=== PATIENT | male | born 1950 | race Caucasian/White ===

== ENCOUNTER 2022-07-29 14:17 | Observation (INO) | payer BC, SELFPAY ==
[2022-07-29] VITALS (7 sets, daily range): BP systolic 95–127; BP diastolic 52–70; PULSE 58–71; RESP 16–18; TEMP 36.4–36.6; O2SAT 95–100; BMI 31.8; BMI 34.0
--- NOTE | 2022-07-29 14:19 | ECG_ITS ---
[facility] Test Date: 2022-07-29 Pat Name: Jordan Dorsey Department: Room: Gender: Male Skip Loader: : 1950 Requested By: Itz Traylor Order Number: [id number] Ulysses MD: Veda Alexis M.D. Measurements Intervals [place] Rate: 61 P: IA: QRS: -19 QRSD: 162 T: 76 QT: 476 QTc: 483 Interpretive Statements Sinus rhythm with borderline first-degree AV block LEFT BUNDLE BRANCH BLOCK [120+ ms QRS DURATION, 80+ ms Q/S IN V1/V2, 85+ ms R IN I/aVL/V5/V6] Compared to ECG 01/07/2016 20:05:19 Sinus rhythm no longer present Electronically Signed On 07-29-2022 18:24:58 CDT by Veda Alexis M.D. [id number]
--- NOTE | 2022-07-29 14:32 | W.ED.SYNCOPE ---
HPI - Syncope General: Chief Complaint: Syncope Stated Complaint: SYNCOPE Time Seen by Provider: 07/29/22 14:18 History of Present Illness: 72-year-old male presenting today with syncope. Patient notes he was in rastafari today. When he started to feel like he was going to pass out. Sat down slowly on a pew before he almost passed out. Noted to have significant diaphoresis. When asked about any kind of pain or other symptoms he does notes that he is hungry. Feels like his blood sugar is low. Blood sugar was checked on the scene was noted to be over 100. He denies fevers or chills. He denies nausea or vomiting. He denies diarrhea. Denies chest pain or shortness of breath. No prior history of similar Review of Systems General: Reports: 10 or more systems reviewed and unremarkable except in HPI and below Physical Exam Const: COMMON NORMALS: no acute distress, patient oriented x3 and alert GENERAL APPEARANCE: cooperative ORIENTATION/CONSCIOUSNESS: Yes awake, Yes oriented to person, Yes oriented to place and Yes oriented to time HENMT: COMMON NORMALS: normocephalic, atraumatic, external ears normal, Normal external nose present and moist oral mucous membranes HEAD & SCALP: normal to inspection, normocephalic and atraumatic NOSE: Normal external nose present GENERAL EAR: hearing grossly impaired EXTERNAL EAR: Yes external ears normal Eye: COMMON NORMALS: Equal, round and reactive pupils present, EOMs intact bilaterally, conjunctivae normal and no scleral icterus GENERAL EYE: appearance normal, both eyes and all related structures EYELID: eyelids normal CONJUNCTIVA: Yes conjunctivae normal SCLERA: sclerae normal PUPIL: Yes Equal, round and reactive pupils present Neck/C-Spine: COMMON NORMALS: full ROM, supple and no JVD GENERAL: Yes normal visual inspection Lymph: LYMPHATIC: no lymphadenopathy noted and no lymphedema noted Chest: COMMONS NORMALS: normal inspection of the chest Resp: COMMON NORMALS: normal respiratory effort, No retractions and No use of accessory muscles Cardio: COMMON NORMALS: no JVD, regular rate and regular rhythm RATE: regular rate RHYTHM: regular rhythm GI: COMMON NORMALS: Normal to inspection, nondistended, normoactive bowel sounds present : COMMON NORMALS: Yes no CVA tenderness BLADDER/KIDNEY EXAM: Yes no CVA tenderness Back/Pelvis: COMMON NORMALS: no CVA tenderness and thoracic and lumbar spine normal to inspection Extremity: COMMON NORMALS: normal to inspection, full ROM and capillary refill normal GENERAL: Yes normal exam except as noted Neuro: COMMON NORMALS: patient oriented x3, CN's II-XII intact bilaterally, moves all extremities, no focal motor deficits, no sensory deficits noted and gait normal SENSORIUM/ORIENTATION: Yes alert, Yes oriented to person, Yes oriented to place and Yes oriented to time Psych: COMMON NORMALS: mental status grossly normal, Normal thought process present, cooperative and normal affect THOUGHT PROCESS: Normal thought process present Skin: COMMON NORMALS: no rashes or lesions noted and no wounds GENERAL SKIN EXAM: no rashes or lesions noted Course Vital Signs: Vital signs: Vital Signs Temperature 97.6 F 07/29/22 14:21 Pulse Rate 58 L 07/29/22 15:28 Respiratory Rate 16 07/29/22 15:28 Blood Pressure 101/55 07/29/22 15:28 Pulse Oximetry 98 07/29/22 15:28 Oxygen Delivery Me thod 07/29/22 15:28 MDM - Syncope Medical Decision Making 72-year-old male presenting today with syncope. Blood sugar in the ED 62. Vitals within normal limits. Patient was given food. EKG with left bundle branch block. When compared to EKG dated 01/07/2016 the same pattern is present no significant interval changes. Significant elevation in patient's troponin to 500. Patient with suspected NSTEMI. Started on aspirin. Spoke to hospital medicine requested Lovenox be started. Also requested CTA. Both these were ordered. Patient admitted in stable condition. Lab Data : 07/29/22 14:32 07/29/22 14:32 Laboratory Results WBC 9.9 10^3/uL (4.0-10.0) 07/29/22 14:32 RBC 4.59 10^6/uL (4.1-5.3) 07/29/22 14:32 Hgb 13.9 g/dL (11.7-16.6) 07/29/22 14:32 Hct 43.1 % (42.0-52.0) 07/29/22 14:32 MCV 93.9 fl (80-94) 07/29/22 14:32 MCH 30.3 pg (28.0-34.0) 07/29/22 14:32 MCHC 32.3 g/dL (30.0-36.0) 07/29/22 14:32 RDW 14.0 % (12.1-15.1) 07/29/22 14:32 Plt Count 196 10^3/cmm (130-400) 07/29/22 14:32 MPV 11.1 fL (7.4-10.4) H 07/29/22 14:32 Neut % (Auto) 52.2 % 07/29/22 14:32 Lymph % (Auto) 25.3 % 07/29/22 14:32 [place] % (Auto) 15.7 % 07/29/22 14:32 Eos % (Auto) 5.8 % 07/29/22 14:32 Baso % (Auto) 0.7 % 07/29/22 14:32 Neut # (Auto) 5.16 10^3/uL (1.8-7.7) 07/29/22 14:32 Lymph # (Auto) 2.5 10^3/uL (0.8-4.8) 07/29/22 14:32 [place] # (Auto) 1.6 10^3/uL (0.2-0.9) H 07/29/22 14:32 Eos # (Auto) 0.6 10^3/uL (0.0-0.8) 07/29/22 14:32 Baso # (Auto) 0.1 10^3/uL (0.0-0.1) 07/29/22 14:32 Nucleated RBC % (auto) 0 % 07/29/22 14:32 Nucleated RBCs # 0.0 /100WBC 07/29/22 14:32 Sodium 136 mmol/L (136-145) 07/29/22 14:32 Potassium 3.9 mmol/L (3.5-5.1) 07/29/22 14:32 Chloride 99 mmol/L (98-107) 07/29/22 14:32 Carbon Dioxide 25 mmol/L (22-29) 07/29/22 14:32 Anion Gap 15.9 (5-19) 07/29/22 14:32 BUN 38 mg/dL (8-23) H 07/29/22 14:32 Creatinine 1.1 mg/dL (0.7-1.2) 07/29/22 14:32 GFR Calculation Not Reportable 07/29/22 14:32 Glucose 62 mg/dL (65-115) L 07/29/22 14:32 POC Glucose 62 mg/dL (70-110) L 07/29/22 14:31 Calculated Osmolality 289 mOsm/kg (285-295) 07/29/22 14:32 Calcium 9.3 mg/dL (8.5-10.5) 07/29/22 14:32 Total Bilirubin 0.4 mg/dL (0.15-1.2) 07/29/22 14:32 AST 31 U/L (0-40) 07/29/22 14:32 ALT 25 U/L (0-41) 07/29/22 14:32 Alkaline Phosphatase 60 U/L (40-130) 07/29/22 14:32 Troponin T Baseline 504 ng/L (0-15) H* 07/29/22 14:32 Total Protein 6.6 g/dL (6.6-8.7) 07/29/22 14:32 Albumin 4.1 g/dL (3.5-5.2) 07/29/22 14:32 Globulin 2.5 g/dL (1.3-4.6) 07/29/22 14:32 Discharge Plan Discharge Patient Disposition: Admitted As Inpatient Clinical Impression: Non-ST elevation NV (NSTEMI) Condition: Stable Prescriptions: No Action citalopram 20 mg tablet 20 mg PO QDAY Qty: 30 1RF Referrals: Valorie Wells APN [Primary Care Provider] - Coding Level of Care Code ED Scrap Handler for She Fwd Exam Comprehensive
[2022-07-29 14:39] LABS: Glucose Point of Care 62 mg/dL (70-110)
[2022-07-29 15:03] LABS: Basophils # 0.1 10^3/uL (0.0-0.1); Basophils % 0.7 %; Eosinophils # 0.6 10^3/uL (0.0-0.8); Eosinophils % 5.8 %; Hematocrit 43.1 % (42.0-52.0); Hemoglobin 13.9 g/dL (11.7-16.6); Lymphocytes # 2.5 10^3/uL (0.8-4.8); Lymphocytes % 25.3 %; Mean Corpuscular HGB Conc 32.3 g/dL (30.0-36.0); Mean Corpuscular Hemoglobin 30.3 pg (28.0-34.0); Mean Corpuscular Volume 93.9 fl (80-94); Mean Platelet Volume 11.1 fL (7.4-10.4); Monocytes # 1.6 10^3/uL (0.2-0.9); Monocytes % 15.7 %; Neutrophils # 5.16 10^3/uL (1.8-7.7); Neutrophils % 52.2 %; Nucleated Red Blood Cells % 0 %; Platelet Count 196 10^3/cmm (130-400); Red Blood Count 4.59 10^6/uL (4.1-5.3); White Blood Count 9.9 10^3/uL (4.0-10.0)
[2022-07-29 15:22] LABS: Troponin(5th) Baseline 504 ng/L (0-15)
[2022-07-29 15:23] LABS: Alanine Aminotransferase 25 U/L (0-41); Albumin Level 4.1 g/dL (3.5-5.2); Alkaline Phosphatase 60 U/L (40-130); Anion Gap 15.9 (5-19); Aspartate Amino Transferase 31 U/L (0-40); Blood Urea Nitrogen 38 mg/dL (8-23); Calcium 9.3 mg/dL (8.5-10.5); Carbon Dioxide 25 mmol/L (22-29); Chloride 99 mmol/L (98-107); Globulin 2.5 g/dL (1.3-4.6); Glucose 62 mg/dL (65-115); Osmolality Calculated 289 mOsm/kg (285-295); Potassium 3.9 mmol/L (3.5-5.1); Sodium 136 mmol/L (136-145); Total Bilirubin 0.4 mg/dL (0.15-1.2); Total Protein 6.6 g/dL (6.6-8.7)
--- NOTE | 2022-07-29 15:29 | CTR_ITS ---
PROCEDURE INFORMATION: Exam: CTA Chest With Contrast Exam date and time: 07/29/2022 4:33 PM Age: 72 years old Clinical indication: Shortness of breath; Additional info: SOB TECHNIQUE: Imaging protocol: Computed tomographic angiography of the chest with contrast. 3D rendering (Not supervised by radiologist): MIP and/or 3D reconstructed images were created by the technologist. Radiation optimization: All CT scans at this facility use at least one of these dose optimization techniques: automated exposure control; mA and/or kV adjustment per patient size (includes targeted exams where dose is matched to clinical indication); or iterative reconstruction. Contrast material: OMNI 350; Contrast volume: 100 ml; Contrast route: INTRAVENOUS (IV); COMPARISON: CT chest w con* [id number] 01/07/2016 9:07 PM RADIATION DOSE METRICS: Total DLP (mGy-cm): 501.38 FINDINGS: Pulmonary arteries: Normal. No pulmonary emboli. Aorta: Unremarkable. No aortic aneurysm. No aortic dissection. Lungs: Bilateral dependent atelectasis versus minimal infiltrate. Pleural spaces: Unremarkable. No pneumothorax. No pleural effusion. Heart: Coronary artery atherosclerotic calcifications. Lymph nodes: Unremarkable. No enlarged lymph nodes. Bones/joints: Chronic right posterior rib fractures appear healed. Soft tissues: Unremarkable. CT/CT angio chest PE protcl [id number] IMPRESSION: 1. Negative for pulmonary embolus. 2. Coronary artery atherosclerotic calcifications. 3. Bilateral dependent atelectasis versus minimal infiltrate. 4. Chronic right posterior rib fractures appear healed.
[2022-07-29 15:35] LABS: Glucose Point of Care 96 mg/dL (70-110)
[2022-07-29] MEDS: enoxaparin 100 mg/mL Syringe SUBCUT (15:38)
--- NOTE | 2022-07-29 16:19 | ECG_ITS ---
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 Measurements Intervals [place] Rate: 58 P: 61 [place]: 210 QRS: -16 QRSD: 162 T: 64 QT: 476 QTc: 472 Interpretive Statements SINUS BRADYCARDIA WITH FIRST DEGREE AV BLOCK LEFT BUNDLE BRANCH BLOCK [120+ ms QRS DURATION, 80+ ms Q/S IN V1/V2, 85+ ms R IN I/aVL/V5/V6] Compared to ECG 07/29/2022 14:30:12 First degree AV block now present Electronically Signed On 07-30-2022 21:29:21 CDT by Veda Alexis M.D. [email or web address].[employer]/store/[id number]
[2022-07-29] MEDS: iohexol 350 mg/mL 100 mL Btl IV (16:38)
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
--- NOTE | 2022-07-29 18:22 | ECG_ITS ---
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 Interpretive Statements NAME OF STUDY: LEXISCAN SESTAMIBI STRESS TEST INDICATION: Ua, PROCEDURE: At the baseline, the EKG revealed normal sinus rhythm with a left bundle branch block. The baseline heart was 67 bpm with a blood pressue of 131/64 mm of Hg Lexiscan was infused over a period of 20 seconds. A total of 0.4 milligrams of Lexiscan was infused. The stress phase was continued for a total of 5 minutes. Heart rate at the end of the stress phase was 75 bpm with a blood pressure 133/73 mm of Hg. The EKG at the peak infusion revealed no significant changes. Sestamibi was injected 20 seconds after the Lexiscan infusion. Heart rate at the end of the recovery phase was 73 bpm with a blood pressure of 135/75 mm of Hg. CONCLUSION: 1. No significant EKG changes with the LexiScan infusion 2. No LexiScan induced chest pain or cardiac arrhythmia 3. Normal blood pressure and heart rate response 4. Sestamibi/sestamibi perfusion scan pending; see separate report. Electronically Signed On 08-03-2022 16:11:44 CDT by Veda Alexis M.D. [id number]
--- NOTE | 2022-07-29 18:22 | USCV_ITS ---
Jordan Dorsey Age: 72 Gender: M : 1950 Exam Date: 07/29/2022 20:32 Ordering Phys: Claude Mo MD Technologist: Felecia Witt Exam Location[place] [facility] [place]ication: NSTEMI BP: 110 / 65 HR: 63 Rhythm: Sinus Technical Quality: Adequate MEASUREMENTS (Male / Female) Normal Values 2D ECHO LV Diastolic Diameter PLAX 4.0 cm 4.2 - 5.9 / 3.9 - 5.3 cm LV Systolic Diameter PLAX 2.3 cm LV Chamber Size 2.9 cm IVS Diastolic Thickness 1.3 cm 0.6 - 1.0 / 0.6 - 0.9 cm IVS Systolic Thickness 1.7 cm LVPW Diastolic Thickness 1.2 cm 0.6 - 1.0 / 0.6 - 0.9 cm LVPW Systolic Thickness 1.6 cm RV Chamber Size 2.4 cm LVOT Diameter 2.0 cm LV Ejection Fraction 2D Teich 74.4 % LV Ejection Fraction MOD 2C 62.4 % LV Ejection Fraction 2C AL 63.2 % LA Diameter 3.4 cm LA Width 3.6 cm LA Height 4.2 cm RA Width 3.8 cm RA Height 4.3 cm Aorta at Sinotubular Diameter 2.9 cm IVC Diameter 2.3 cm M-MODE Aortic Annulus Diameter 3.5 cm LA Ao Ratio MM 1.1 MV E Point Septal Separation 0.6 cm DOPPLER AV Peak Velocity 133.0 cm/s LVOT Peak Velocity 114.0 cm/s AV Area Cont Eq vti 3.2 cm squared AV Area Cont Eq pk 2.7 cm squared MV Area PHT 5.1 cm squared Mitral E to A Ratio 1.2 MV E' Velocity 126.0 cm/s TR Peak Velocity 247.9 cm/s TR Peak Gradient 24.6 mmHg TR Mean Velocity 209.7 cm/s TR Mean Gradient 18.6 mmHg TR Velocity Time Integral 90.9 cm TV Peak E Velocity 77.0 cm/s Right Atrial Pressure 3.0 mmHg Pulmonary Artery Systolic Pressu 27.6 mmHg PV Peak Velocity 0.0 cm/s RV Acceleration Time 0.1 s RV Ejection Time 0.4 s RV AcT/ET 0.3 FINDINGS Left Ventricle LV ejection fraction around 50%. Abnormal septal motion consistent with conduction abnormality. Right Ventricle The right ventricle is normal in size and function. Right Atrium The right atrium is normal in size. Left Atrium Mildly increased left atrial size. Mitral Valve Thickened mitral valve. Moderate mitral valve regurgitation. Aortic Valve Thickened aortic valve. Tricuspid Valve Trace to mild tricuspid valve regurgitation. Estimated pulmonary artery peak systolic pressure of 28 mmHg Pulmonic Valve Pulmonic valve not well visualized. Pericardium No pleural effusion. Aorta Normal aortic annulus size. IVC The inferior vena cava appears normal. CONCLUSIONS Normal LV size with a slightly diminished ejection fraction of 50%.(Visual) Abnormal septal motion consistent with conduction abnormality. Mildly increased left atrial size. Thickened mitral valve. Moderate mitral valve regurgitation. Thickened aortic valve. Trace to mild tricuspid valve regurgitation. Estimated pulmonary artery peak systolic pressure of 28 mmHg. There is no pericardial effusion. There are no intracardiac masses. No similar previous studies are available for comparison Dr Veda Alexis MD [facility] (Electronically Signed) Final Date: 30 July 2022 09:32 S
[2022-07-29 18:42] LABS: Procalcitonin 0.06 ng/mL (0-0.5)
[2022-07-29] MEDS: lactated ringers 500 ML 999 ML IV (19:45)
[2022-07-29] MEDS: sodium chloride 0.9% 1,000 ML 75 ML IV (19:49)
[2022-07-29 19:58] LABS: Estmated Average Glucose 186; Hemoglobin A1C 8.1 % (4.0-6.0)
--- NOTE | 2022-07-29 20:11 | ECG_ITS ---
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 Measurements Intervals [place] Rate: 66 P: 47 AZ: 176 QRS: -5 QRSD: 162 T: 114 QT: 435 QTc: 458 Interpretive Statements SINUS RHYTHM LEFT BUNDLE BRANCH BLOCK [120+ ms QRS DURATION, 80+ ms Q/S IN V1/V2, 85+ ms R IN I/aVL/V5/V6] Compared to ECG 07/29/2022 16:13:31 Sinus bradycardia no longer present First degree AV block no longer present Electronically Signed On 07-30-2022 21:29:59 CDT by Veda Alexis M.D. [email or web address] [email or web address] memorial hospitalStopTheHackermercy [facility].[employer]/store/OM/[id number]
[2022-07-29 20:25] LABS: Troponin 5 6HR 380.6 ng/L (0-15)
[2022-07-29 20:47] LABS: NT Pro B Type Natriuretic Pept 491 pg/mL (0-125); Thyroid Stimulating Hormone 0.91 uIU/mL (0.27-4.20)
[2022-07-29 21:19] LABS: Add Urine Microscopic? NO; Charge for UA Resulting for Rev
[2022-07-29 21:20] LABS: Glucose Point of Care 159 mg/dL (70-110)
[2022-07-29 21:24] LABS: Bilirubin Urine Neg (Negative); Blood Urine Neg (Negative); Glucose Urine UA 1+ (Normal); Ketones Urine Negative (Negative); Leukocyte Esterase Urine Negative (Negative); Nitrate Urine Negative (Negative); Protein Urine Neg (Negative); Specific Gravity, Urine 1.015 (1.005-1.030); Urine Appearance Clear (CLEAR); Urine Color Yellow (Yellow); Urobilinogen Urine Neg (Negative); pH Urine 5 (5-7)
[2022-07-29] MEDS: enoxaparin 120 mg/0.8 mL Syringe 110 MG SUBCUT (22:36)
[2022-07-30] VITALS (11 sets, daily range): BP systolic 106–148; BP diastolic 61–84; PULSE 68–90; RESP 16–22; TEMP 36.3–36.8; O2SAT 94–98
[2022-07-30 00:42] LABS: Vitamin B12 637 pg/mL (232-1245)
[2022-07-30 04:51] LABS: Basophils # 0.1 10^3/uL (0.0-0.1); Eosinophils # 0.4 10^3/uL (0.0-0.8); Eosinophils % 7.3 %; Hematocrit 44.5 % (42.0-52.0); Hemoglobin 13.8 g/dL (11.7-16.6); Lymphocytes # 1.1 10^3/uL (0.8-4.8); Lymphocytes % 18.9 %; Mean Corpuscular Volume 96.7 fl (80-94); Mean Platelet Volume 10.9 fL (7.4-10.4); Monocytes # 0.9 10^3/uL (0.2-0.9); Monocytes % 14.4 %; Neutrophils % 58.1 %; Nucleated Red Blood Cells % 0 %; Platelet Count 161 10^3/cmm (130-400); Red Cell Distribution Width 14.2 % (12.1-15.1)
[2022-07-30 05:13] LABS: Blood Urea Nitrogen 28 mg/dL (8-23); Calcium 9.2 mg/dL (8.5-10.5); Carbon Dioxide 28 mmol/L (22-29); Chloride 99 mmol/L (98-107); Glucose 128 mg/dL (65-115); Osmolality Calculated 289 mOsm/kg (285-295); Sodium 136 mmol/L (136-145)
[2022-07-30 05:22] LABS: Anion Gap 13.4 (5-19); Potassium 4.4 mmol/L (3.5-5.1)
[2022-07-30] MEDS: acetaminophen 500 mg Tablet PO ×2 (05:24→23:23)
[2022-07-30 06:47] LABS: Glucose Point of Care 111 mg/dL (70-110)
[2022-07-30] MEDS: regadenoson 0.4 Mg/5 ml Syringe IVP (07:39)
[2022-07-30] MEDS: sennosides-docusate Tablet 1 TAB PO (08:48)
[2022-07-30] MEDS: aspirin 81 mg Chew Tablet PO (08:48)
[2022-07-30] MEDS: atorvastatin 40 mg Tablet 80 MG PO (08:48)
[2022-07-30] MEDS: clopidogrel 75 mg Tablet PO (08:48)
--- NOTE | 2022-07-30 11:03 | P.PN_ITS ---
Subjective Subjective: Positive stress test We will call Dr. Coombs Plan for angiogram tomorrow We will keep him n.p.o. after midnight Chest pain-free Hemodynamically stable Vitals/I&O/Wt Last Vital Signs Temp 97.3 F L 07/30/22 07:00 Pulse 70 07/30/22 08:00 Resp 16 07/30/22 08:00 BP 135/75 07/30/22 07:38 Pulse Ox 98 07/30/22 08:00 O2 Del Method 07/30/22 08:00 07/29/22 07/30/22 07/30/22 22:59 06:59 14:59 Intake Total 500 / 500 500 / 500 Balance 500 / 500 500 / 500 Weight last 48 hrs Weight 110.495 kg Weight 106.594 kg Physical Exam Narrative: Chest pain-free Came out of bathroom No active shortness of breath Looks euvolemic Abdomen soft Pleasant cooperative Currently on room air Hemodynamically stable Data : 07/30/22 04:39 07/30/22 04:39 A&P Assessment and plan (1) Non-ST elevation SC (NSTEMI): Plan Positive stress test NSTEMI Continue ACS protocol Chest pain-free Plan for angiogram tomorrow N.p.o. after midnight Continue therapeutic Lovenox Full code Continue cardiac consistent carb diet until midnight Normotensive Afebrile Attestations Medical Necessity Statement*: Angiogram tomorrow Time Spent in Patient Care: 35 Coding Level of Care Code Acute Fructose Loader for She [place] Diagnoses Non-ST elevation SC (NSTEMI) I21.4
[2022-07-30 11:55] LABS: Glucose Point of Care 116 mg/dL (70-110)
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
[2022-07-30 16:51] LABS: Glucose Point of Care 132 mg/dL (70-110)
--- NOTE | 2022-07-30 18:22 | NMCV_ITS ---
NM joes perf SPECT r/s* [id number] Jordan Dorsey Age: 72 Gender: M : 1950 Exam Date: 07/30/2022 06:47 Ordering Phys: Claude Mo MD Technologist: IRAM Howe Exam Location: [facility] Indications: CP STRESS TEST Please see separate stress test report in [facility] for full findings IMAGE PROTOCOL Rest/Stress 1 Lexiscan Day Radiopharmaceutical Dose (mCi) Administration Site Administered by Rest: Tc-99m 10.7 IV IRAM Howe Sestamibi Stress:Tc-99m 32.5 IV IARM Howe Sestamibi Rest: 30-Jul-2022 60 Discovery 630 Stress: 30-Jul-2022 30 Discovery 630 0.4mg Lexiscan. Images obtained in supine and prone position. SPECT RESULTS Technical Quality: Good Raw Data Analysis: Normal Image Corrections: No attenuation or motion correction applied Summed Stress Score: 8 Summed Rest Score: 7 Summed Difference Score: 4 PERFUSION FINDINGS Moderate area of moderately severe decreased tracer uptake in the basal, mid and apical inferior and basal inferolateral regions. Some reversibility was noted in the inferior wall region FUNCTIONAL RESULTS (calculated via Gated SPECT) Stress Image LV EF (%): 63 Stress EDV (mL):132 TID: 1.09 Stress ESV (mL):49 FUNCTIONAL FINDINGS: Segmental wall motion analysis revealing no gross wall motion normalities. IMPRESSIONS 1. Myocardial perfusion imaging revealing moderate area of moderately severe decreased tracer uptake in the inferior wall region and apex with some reversibility suggesting myocardial scarring that she was on the right coronary artery with significant farhan-infarction ischemia 2. Normal LV ejection fraction of 63%. 3. LV wall motion analysis revealing no gross wall motion abnormalities. 4. Normal LV volume No similar previous studies are available for comparison Dr Veda Alexis MD FAC (Electronically Signed) Final Date: 30 July 2022 09:36 S
--- NOTE | 2022-07-30 19:59 | PC.NURSE ---
Called and spoke with regarding patients request to be moved into another room as his roomateis confused and disruptive. The patient is scheduled fora cath tomorrow. said patient can be movedtomedsurg with tele.
--- NOTE | 2022-07-30 20:39 | PC.NURSE ---
Shift Note Frequent safety and comfort rounds continue. Pt denies any chest pain or discomfort. 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 Educated pt on left heart cath procedure and prep. Pt verbalizes understanding
[2022-07-31] VITALS (20 sets, daily range): BP systolic 105–155; BP diastolic 63–132; PULSE 83–133; RESP 12–27; TEMP 36.4–36.5; O2SAT 93–98
[2022-07-31] MEDS: enoxaparin 120 mg/0.8 mL Syringe 110 MG SUBCUT (00:12)
[2022-07-31] MEDS: sodium chloride 0.9% 1,000 ML 50 ML IV (00:13)
[2022-07-31 03:00] LABS: Basophils # 0.1 10^3/uL (0.0-0.1); Basophils % 1.2 %; Eosinophils # 0.4 10^3/uL (0.0-0.8); Eosinophils % 8.3 %; Hematocrit 41.5 % (42.0-52.0); Hemoglobin 13.1 g/dL (11.7-16.6); Lymphocytes # 1.1 10^3/uL (0.8-4.8); Lymphocytes % 21.7 %; Mean Corpuscular HGB Conc 31.6 g/dL (30.0-36.0); Mean Corpuscular Hemoglobin 30.1 pg (28.0-34.0); Mean Corpuscular Volume 95.4 fl (80-94); Monocytes # 0.8 10^3/uL (0.2-0.9); Monocytes % 16.4 %; Neutrophils # 2.59 10^3/uL (1.8-7.7); Neutrophils % 52.4 %; Nucleated Red Blood Cells % 0 %; Platelet Count 160 10^3/cmm (130-400); Red Blood Count 4.35 10^6/uL (4.1-5.3); Red Cell Distribution Width 14.2 % (12.1-15.1); White Blood Count 4.9 10^3/uL (4.0-10.0)
[2022-07-31 03:22] LABS: Anion Gap 13.1 (5-19); Blood Urea Nitrogen 21 mg/dL (8-23); Calcium 9.4 mg/dL (8.5-10.5); Carbon Dioxide 26 mmol/L (22-29); Chloride 98 mmol/L (98-107); Glucose 139 mg/dL (65-115); Osmolality Calculated 281 mOsm/kg (285-295); Potassium 4.1 mmol/L (3.5-5.1); Sodium 133 mmol/L (136-145)
[2022-07-31] MEDS: diphenhydrAMINE 50 mg Capsule PO (06:32)
[2022-07-31 06:51] LABS: Glucose Point of Care 104 mg/dL (70-110)
--- NOTE | 2022-07-31 07:30 | XACV_ITS ---
Exam Room: [facility] Ht: 180 cm Wt: 110 kg BSA: 2.39 m2 Gender: Male : 1950 Any Known Allergies: Sulfa Exam Priority: Routine Procedure(s): Procedure Description: Diagnostic procedure Procedure Description: Coronary Angiography Diagnostic Cath Status: Elective Diagnostic Findings * INDICATION: 72 year old man with PMH of carotid artery disease, hypertension, diabetes, hyperlipidemia who presented with presyncope, troponin elevation, diaphoresis and left bundle branch block. Patient had significant bilateral arm pain about 1 week back. No chest pain now. Stress test shows a prior infarct with farhan-infarct ischemia in RCA territory. Given significant troponin elevation that has trended down on repeat check, we will proceed with coronary angiogram with possible percutaneous coronary intervention. * Circumflex has moderate diffuse disease. * Left Main: luminal irregularities, has 20% ostial stenosis, DMITRIY: 3 flow. * RCA appears to be small in size. Mid Right Coronary Artery: total occlusion, DMITRIY: 0 flow. Has collateral blood supply to distal RCA. * LAD has moderate diffuse disease. Mid Left Anterior Descending: moderate 50% stenosis, DMITRIY: 3 flow. * Coronary angiography shows right dominance. PCI Status: Urgent PCI Indication: NSTE - ACS Interventional Findings * PROCEDURE DETAIL: We engaged RCA with JR4 guide catheter. IV heparin was administered to maintain ACT above 250 Seconds. Brief attempt at avoiding totally occluded RCA was performed. However wire could not be advanced. As patient is chest pain-free and troponins are downtrending, occlusion appears to be old. We decided to medically treated it. We then engaged left main artery with XB 3.0 guide catheter. We tried to wire the LAD with IFR wire after normalization to assess mid LAD moderate stenosis. However because of tortuosity, IFR wire had difficulty to advance. As stress test had not shown ischemia in LAD territory, we decided to treated medically.. Conclusions 1. 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 Unsuccessful revascularization attempt. Patient likely had acute occlusion 1 week back when had significant bilateral arm discomfort but no medical assistance was seeked. Patient now has collateral blood supply and mostly fixed perfusion defect in RCA territory. Medical therapy decided. Recommendations * Aspirin and Plavix for atleast 1 year. * High intensity statin therapy. * Outpatient cardiology follow up in 4 weeks. Interventional RX Recommendation: medical therapy and/or counseling Diagnostic RX Recommendation: PCI w/o planned CABG Anticoagulation: Heparin Pressures Phase:Rest AO : 108 / 71 ( 88 ) @ 8:54:00 AM 103 / 60 ( 77 ) @ 9:00:00 AM 102 / 58 ( 76 ) @ 9:16:00 AM 103 / 50 ( 71 ) @ 9:26:00 AM Clinical Evaluation EBL: 5mL-10mL Procedural Details Procedure Consent Obtained. Pre-Procedure Time Out. Identified patient by full name and date of as verbalized by the patient/guarantor. Does the consent match the physician's order: Yes. Accurate & Complete Informed Consent: Yes. Inpatient/Outpatient History & Physical on Chart: Yes. If H&P is completed, is and addenduem needed: No. Visualize and Verify Site with Patient/Guarantor: N/A. Relevant Radiology Images available: Yes. The risks, benefits, and alternatives of sedation and/or procedure were discussed by physician. The patient agrees to continue. Procedure started. [facility] Clinical Fraility Score: 3: Managing Well. 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 Chest Pain Symptom Assessment: Typical Angina Symptoms. Cardiovascular Instability: No. Correct patient, site and procedure confirmed by cath team. Current diagnosis: NSTEMI. PERRLA. Strong, equal hand health and safety specialist bilaterally. Lungs clear x 5 lobes. IV Site on Arrival: 18 gauge in the left anticubital. IV Site on Arrival: 22 gauge in the left hand. IV Fluids: 0.9% NaCl at KVO. 200 mL infused prior to laboratory sampler. Pre Procedural Pulses: bilateral radial was 1+. Oxygen started at 2 liters/min via nasal canula. right groin was prepped with chloroprep then draped in the usual sterile fashion. right radial was prepped with chloroprep then draped in the usual sterile fashion. Physician notified. Baseline sample Acquired. HR: 95 BPM. Equipment: 6F - Radial. Cardiac Cath Pack. ACIST Manifold Kit Model BT 2000. Heparinized Saline (2 units/mL), 1000 mL bag. Patient's family unavailable. Patient stated that he would call his spouse when he returned to his room after the procedure. Physician arrived. Physician scrubbed in. Immediate Pre-Procedure Time Out. Correct Patient: Yes; Correct Procedure: Yes; Correct Site: Yes; Correct Patient Position: Yes; Correct Supplies: Yes; Dried Flammable Prep: Yes; Blood Products Available: N/A;. Lidocaine 1% infiltrated to the right radial. Arterial access obtained. A 5 algerian TIG catheter in over the exchange wire. Catheter removed over the exchange wire. A 5 algerian JL4 catheter in over the exchange wire. Multiple views taken of left coronary artery. Catheter removed over the exchange wire. A 5 algerian JR4 catheter in over the exchange wire. Multiple views taken of right coronary artery. Catheter removed over the exchange wire. 6 algerian JR 4 guide catheter was inserted over the exchange wire. Runthrough guidewire was advanced through the guide catheter but unable to crosss the lesion in the mid RCA. Guide catheter out over the exchange wire. 6 algerian XB 3 guide catheter was inserted over the exchange wire. OmniWire iFR guidewire was advanced through the guide catheter to lesion in the mid LAD. Runthrough guidewire was advanced through the guide catheter to lesion in the mid LAD. Unable to cross lesion, iFR and Runthrough guidewires removed. Cine of the LCA performed. Guide catheter out over the exchange wire. A TR Band was successful obtaining hemostatsis at the Right Radial artery insertion site. Dr. Coombs scrubbed out. TR band placed. Hemostasis obtained. Post Procedure: Pulses reassessed and unchanged. PERRLA. Strong, equal hand health and safety specialist bilaterally. No VTE prophylaxis required. Medication's Wasted: Lidocaine 1% = 1 mL. Medication's Wasted: Nitro = 49.2 mg. Medication's Wasted: Heparin = 1000 units. Total IV fluids: 70 mL. Post-op diagnosis: Total occlusion of the RCA. Moderate mid LAD stenosis. Complications: none. Estimated blood loss: 5mL-10mL. Responsiveness - Normal response to verbal stimuli; alert and oriented, PERRLA. Airway - Unaffected, no intervention required; spontaneous ventilation. Circulation: W/N/L, pulses unchanged. Nausea/Vomiting: No. Procedure completed. Patient transferred by wheelchair to [facility]. Vital chart was stopped. Access Site Site: Right Radial artery Sheath Size: 6 Fr Hemostasis Method: TR Band Hemostasis Success: Successful Procedure Medications Start: 7:51 AM Stop: 7:51 AM Medication: Versed Amount: 1 mg Route: I.V. Start: 7:51 AM Stop: 7:51 AM Medication: Fentanyl Amount: 50 mcg Route: I.V. Start: 7:53 AM Stop: 7:53 AM Medication: Nitrogylcerin Amount: 200 mcg Route: I.A. Start: 7:54 AM Stop: 7:54 AM Medication: Heparin Amount: 5000 units Route: I.V. Start: 8:02 AM Stop: 8:02 AM Medication: Fentanyl Amount: 25 mcg Route: I.V. Start: 8:03 AM Stop: 8:03 AM Medication: Nitrogylcerin Amount: 200 mcg Route: I.A. Start: 8:04 AM Stop: 8:04 AM Medication: Versed Amount: 1 mg Route: I.V. Start: 8:13 AM Stop: 8:13 AM Medication: Nitrogylcerin Amount: 200 mcg Route: I.A. Start: 8:13 AM Stop: 8:13 AM Medication: Heparin Amount: 3000 units Route: I.V. Start: 8:22 AM Stop: 8:22 AM Medication: Heparin Amount: 2000 units Route: I.V. Start: 8:22 AM Stop: 8:22 AM Medication: Nitrogylcerin Amount: 200 mcg Route: I.A. Start: 8:36 AM Stop: 8:36 AM Medication: Versed Amount: 1 mg Route: I.V. I, the attending physician, have reviewed and verified all procedure medications. Yes, all medications given per verbal order History/Risk Factors Hypertension: Yes Dyslipidemia: No Peripheral Arterial Disease (PAD): No Myocardial Infarction (WI): No Obesity: Yes Renal Disease: No Tobacco Use: Former Prior Interventions PCI: No CABG: No Valve Surgery: No Report Signatures Finalized by Igor Coombs MD on 08/01/2022 09:29 AM
--- NOTE | 2022-07-31 07:45 | W.PM.OPSUD ---
Surgery/Procedure H&P Update DATE OF PROCEDURE: July 31, 2022 DATE H&P PERFORMED: 07/30/22 H&P UPDATE INFORMATION: I have reviewed H&P completed within last 30 days, I have examined patient prior to procedure and No changes to prior documentation PREOP DIAGNOSIS: NSTEMI PRIMARY INDICATION FOR PROCEDURE: NSTEMI PLANNED PROCEDURE: Left heart cath with possible percutaneous coronary intervention PATIENT REASSESSED PRIOR TO SEDATION, WITH NO CHANGE NOTED: Yes PHYSICAL EXAM: alert, oriented x 3, clear to auscultation bilaterally and regular rate & rhythm AIRWAY EVAL/ANESTHESIA PLAN: ASA III, Local Anesthesia, Risks, benefits & alternatives of sedation and/or procedure discussed and Patient agrees to continue as planned ADDITIONAL INFORMATION: Possible percutaneous coronary intervention
--- NOTE | 2022-07-31 09:05 | PC.NURSE ---
received pt from [facility]. pt complains of no pain, alert and oriented x3. tr band on right wrist with palpable distal pulse. no hematoma or bruising noted. pt educated on restrictions of wrist and acknowledged understanding. floor to call when bed is ready. will continue to educate throughout recovery. pt on monitor and will be recovered per protocol.
--- NOTE | 2022-07-31 09:08 | P.PN_ITS ---
Subjective Subjective: Patient found to have totally occluded RCA with collateral blood supply. Brief attempt at crossing the stenosis performed but wiring could not be done. Moderate mid LAD stenosis. iFR attempted but because of tortuous vessel could not be performed Vitals/I&O/Wt Last Vital Signs Temp 97.7 F 07/31/22 04:00 Pulse 94 07/31/22 09:00 Resp 18 07/31/22 09:00 BP 117/76 07/31/22 09:00 Pulse Ox 97 07/31/22 09:00 O2 Del Method 07/31/22 09:00 07/30/22 07/31/22 07/31/22 22:59 06:59 14:59 Intake Total 240 / 1580 Balance 240 / 1580 Weight last 48 hrs Weight 243 lb 9.6 oz Weight 235 lb Physical Exam Narrative: GENERAL: Patient is alert, awake and oriented x3. [] NECK: No jugular vein distension. [] HEENT: No cyanosis. No icterus. No pallor. [] HEART: Regular S1 and S2. No murmur, rub or gallop. [] LUNGS: Clear to auscultate bilaterally. [] ABDOMEN: Soft CENTRAL NERVOUS SYSTEM: Grossly nonfocal. [] EXTREMITIES: Lower extremities with no edema bilaterally. Pulses palpable in the lower extremities, both dorsalis pedis and posterior tibial. [] Data : 07/31/22 02:50 07/31/22 02:50 A&P Assessment and plan (1) Non-ST elevation IA (NSTEMI): (2) HTN (hypertension): (3) Pre-syncope: Plan Patient has been found to have totally occluded RCA with collateral blood flow. Likely patient had acute IA last week when he had significant symptoms. Stress test showing mainly scar tissue with farhan-infarct ischemia. Brief attempt at revascularization of RCA was unsuccessful. Aggressive medical therapy Continue aspirin and Plavix High intensity statin therapy Echocardiogram shows EF of 50%. Patient will need outpatient 30 day event monitor at time of discharge Thank you for involving us with care of this patient. Patient is stable to be discharged from cardiology standpoint. Please call with questions. Attestations Medical Necessity Statement*: Care expected to cross 2 midnights. Coding Level of Care Code Acute Can Sterilizer for She [place] Diagnoses Non-ST elevation IA (NSTEMI) I21.4 HTN (hypertension) I10 Pre-syncope R55
--- NOTE | 2022-07-31 10:28 | P.DS_ITS ---
Discharge Providers Date of Admission: 07/29/22 15:34 Date of Discharge: July 31, 2022 Attending Provider at Admission: Claude Mo MD Attending Provider at Discharge: Claude Mo MD Primary Care Provider: Valorie Wells APN Diagnoses at Discharge Discharge Diagnosis (1) Non-ST elevation ME (NSTEMI): Status: Acute (2) HTN (hypertension): Status: Acute (3) Pre-syncope: Status: Acute Reason for Visit Reason for Visit: SYNCOPE Hospital Course Hospital Course 72-year male who was admitted for management evaluation of NSTEMI, positive stress test, he never experienced any chest pain he came in for weakness lethargy and shortness of breath on exertion, cardiology was consulted, first troponin was above 500, he was started on ACS protocol at the time of admission, angiogram was done on 07/31 which showed occlusion of RCA, Dr. Coombs has recommended medical management with aspirin, Plavix, atorvastatin and continuation of metoprolol succinate which she takes at home and optimization of antihypertensive regimen. We will add hydralazine 10 mg 3 times daily, his EF is 50%, hemoglobin A1c 8.1, he might need to follow-up with his PCP to see if we can remove pioglitazone and glipizide and change to Sitagliptin. He remained chest pain-free throughout hospitalization. Please see cardiology note for further details official report has not been uploaded. I was called by the thermit welding machine operator for the report. Physical Exam Narrative: Patient remained hemodynamically stable Hypertensive S1, S2 Abdomen soft Pleasant and cooperative No focal neuro exam Currently on room air Abdomen is soft EOMI, PERRLA Discharge Data Studies Completed and Pending Completed Studies During Hospitalization Category Date Time Status CTA PE [CT angio chest PE protcl [id number]] Stat Cat Scan 07/29/22 15:29 Completed Sestamibi Stress Test Request Routine Exams 07/29/22 18:22 Draft NM jose perf SPECT r/s* [id number] Routine Nuc Med 07/30/22 18:22 Completed CV. echo complete* [id number] Routine Ultrasound 07/29/22 18:22 Completed Pending at discharge Category Date Time Status DIRECTOR OF EPIDEMIOLOGY request for service Routine Exams 07/31/22 07:30 Ordered Radiology Impressions Chest CTA 07/29/22 15:29 IMPRESSION: 1. Negative for pulmonary embolus. 2. Coronary artery atherosclerotic calcifications. 3. Bilateral dependent atelectasis versus minimal infiltrate. 4. Chronic right posterior rib fractures appear healed. Laboratory Results WBC 4.9 10^3/uL (4.0-10.0) 07/31/22 02:50 RBC 4.35 10^6/uL (4.1-5.3) 07/31/22 02:50 Hgb 13.1 g/dL (11.7-16.6) 07/31/22 02:50 Hct 41.5 % (42.0-52.0) L 07/31/22 02:50 MCV 95.4 fl (80-94) H 07/31/22 02:50 MCH 30.1 pg (28.0-34.0) 07/31/22 02:50 MCHC 31.6 g/dL (30.0-36.0) 07/31/22 02:50 RDW 14.2 % (12.1-15.1) 07/31/22 02:50 Plt Count 160 10^3/cmm (130-400) 07/31/22 02:50 MPV 11.0 fL (7.4-10.4) H 07/31/22 02:50 Neut % (Auto) 52.4 % 07/31/22 02:50 Lymph % (Auto) 21.7 % 07/31/22 02:50 Anderson % (Auto) 16.4 % 07/31/22 02:50 Eos % (Auto) 8.3 % 07/31/22 02:50 Baso % (Auto) 1.2 % 07/31/22 02:50 Neut # (Auto) 2.59 10^3/uL (1.8-7.7) 07/31/22 02:50 Lymph # (Auto) 1.1 10^3/uL (0.8-4.8) 07/31/22 02:50 Anderson # (Auto) 0.8 10^3/uL (0.2-0.9) 07/31/22 02:50 Eos # (Auto) 0.4 10^3/uL (0.0-0.8) 07/31/22 02:50 Baso # (Auto) 0.1 10^3/uL (0.0-0.1) 07/31/22 02:50 Nucleated RBC % (auto) 0 % 07/31/22 02:50 Nucleated RBCs # 0.0 /100WBC 07/31/22 02:50 Sodium 133 mmol/L (136-145) L 07/31/22 02:50 Potassium 4.1 mmol/L (3.5-5.1) 07/31/22 02:50 Chloride 98 mmol/L (98-107) 07/31/22 02:50 Carbon Dioxide 26 mmol/L (22-29) 07/31/22 02:50 Anion Gap 13.1 (5-19) 07/31/22 02:50 BUN 21 mg/dL (8-23) 07/31/22 02:50 Creatinine 0.9 mg/dL (0.7-1.2) 07/31/22 02:50 GFR Calculation Not Reportable 07/31/22 02:50 Glucose 139 mg/dL (65-115) H 07/31/22 02:50 POC Glucose 104 mg/dL (70-110) 07/31/22 06:46 Estimat Average Glucose 186 07/29/22 14:32 Hemoglobin A1c 8.1 % (4.0-6.0) H 07/29/22 14:32 Calculated Osmolality 281 mOsm/kg (285-295) L 07/31/22 02:50 Calcium 9.4 mg/dL (8.5-10.5) 07/31/22 02:50 Magnesium 2.0 mg/dL (1.7-2.3) 07/30/22 04:39 Total Bilirubin 0.4 mg/dL (0.15-1.2) 07/29/22 14:32 AST 31 U/L (0-40) 07/29/22 14:32 ALT 25 U/L (0-41) 07/29/22 14:32 Alkaline Phosphatase 60 U/L (40-130) 07/29/22 14:32 Troponin T Baseline 504 ng/L (0-15) H* 07/29/22 14:32 Troponin T Hi Sens 6Hr 380.6 ng/L (0-15) H 07/29/22 19:51 Troponin T Hi Sens 6Hr Delta -123.4 ng/L (0-12) L 07/29/22 19:51 C-Reactive Protein 3.0 mg/L (0.0-4.9) 07/30/22 04:39 NT-Pro-B Natriuret Pep 491 pg/mL (0-125) H 07/29/22 19:51 Total Protein 6.6 g/dL (6.6-8.7) 07/29/22 14:32 Albumin 4.1 g/dL (3.5-5.2) 07/29/22 14:32 Globulin 2.5 g/dL (1.3-4.6) 07/29/22 14:32 Vitamin B12 637 pg/mL (232-1245) 07/29/22 19:51 Procalcitonin 0.06 ng/mL (0-0.5) 07/29/22 14:32 TSH 0.91 uIU/mL (0.27-4.20) 07/29/22 19:51 Urine Color Yellow (Yellow) 07/29/22 21:05 Urine Appearance Clear (CLEAR) 07/29/22 21:05 Urine pH 5 (5-7) 07/29/22 21:05 Ur Specific [place] 1.015 (1.005-1.030) 07/29/22 21:05 Urine Protein Neg (Negative) 07/29/22 21:05 Urine Glucose (UA) 1+ (Normal) H 07/29/22 21:05 Urine Ketones Negative (Negative) 07/29/22 21:05 Urine Blood Neg (Negative) 07/29/22 21:05 Urine Nitrate Negative (Negative) 07/29/22 21:05 Urine Bilirubin Neg (Negative) 07/29/22 21:05 Urine Urobilinogen Neg mg/dL (Negative) 07/29/22 21:05 Ur Leukocyte Esterase Negative (Negative) 07/29/22 21:05 Vitals Last Vital Signs Temp 97.7 F 07/31/22 04:00 Pulse 96 07/31/22 10:00 Resp 18 07/31/22 10:00 BP 155/132 07/31/22 10:00 Pulse Ox 96 07/31/22 10:00 O2 Del Method 07/31/22 10:00 Discharge Plan Discharge Patient Disposition: Home Condition: Stable Prescriptions: Continued pioglitazone 45 mg tablet 45 mg PO DAILY amlodipine 5 mg tablet 5 mg PO DAILY telmisartan 80 mg tablet 80 mg PO DAILY hydrochlorothiazide 25 mg tablet 25 mg PO DAILY glipizide 5 mg tablet 5 mg PO BID duloxetine 60 mg capsule,delayed release(DR/EC) 60 mg PO BID aspirin 81 mg Tablet,Chewable 81 mg PO DAILY Qty: 60 0RF clopidogrel 75 mg tablet 75 mg PO DAILY Qty: 60 0RF metoprolol succinate 100 mg tablet extended release 24 hr 100 mg PO DAILY Qty: 60 2RF Changed atorvastatin 10 mg tablet 40 mg PO DAILY Qty: 60 0RF Discontinued meloxicam 15 mg tablet 15 mg PO DAILY Discharge Orders: Discharge Order (Routine); Ordered 07/31/22 Ordered By: Claude Mo Referrals: Valorie Wells APN [Primary Care Provider] - 4-7 days Igor Coombs M.D [Physician] - 1 month Eunice Collado FNP [Nurse Practitioner] - 08/08/22 12:45 pm Discharge Diet: Cardiac Discharge Activity: Increase activity as tolerated Patient Instructions: Opioid Safety Activity Restrictions/Additional Instructions: Retail Event Coordinator has recommended to manage medically No stent was placed however you have blockage of your right coronary artery If your heart rate below 60 please do not take metoprolol succinate Continue your aspirin, Plavix Avoid ibuprofen or meloxicam on a daily basis Discharge Attestations 2 Time Spent in Discharge Care*: less than 30 min Quality Metrics Clinical Quality Measures [ No reported AMI, CVA or VTE this stay] Coding Level of Care Code Acute g FW DC note Diagnoses Non-ST elevation ME (NSTEMI) I21.4 HTN (hypertension) I10 Pre-syncope R55
[2022-07-31] MEDS: losartan 50 mg Tablet PO (11:19)
[2022-07-31] MEDS: aspirin 81 mg Chew Tablet PO (11:20)
[2022-07-31] MEDS: atorvastatin 40 mg Tablet 80 MG PO (11:20)
[2022-07-31] MEDS: clopidogrel 75 mg Tablet PO (11:21)
[2022-07-31] MEDS: hyDRALAzine 20 mg/mL INJ 1 mL 5 MG IVP (11:21)
[2022-07-31] MEDS: sodium chloride 0.9% 1,000 ML 75 ML IV (11:22)
[2022-07-31] MEDS: metoprolol succinate ER (24 HR) 50 mg Tablet PO (14:45)
--- NOTE | 2022-07-31 16:57 | PC.NURSE ---
dc'd pts pivs. Discharge instructions reviewed with patient and spouse. Verbalized understanding on all follow up, limitations, medications. No further questions at this time. Pt left via [place] to private vehicle with his . R wrist dressing in place, no s/s of hematoma or swelling.
== END 2022-07-31 17:01 | disposition home or self-care (01) ==
LOC: ER 16:11 → MEDSURG 07-30 09:03
PROVIDERS: Internal Medicine; Admitting Provider Internal Medicine; Emergency Provider Emergency Medicine; PCP Nurse Practitioner Family; Visit Provider Internal Medicine
DX: I21.4 Non-ST elevation (NSTEMI) myocardial infarction (principal); I65.21 Occlusion and stenosis of right carotid artery; I10 Essential (primary) hypertension; R55 Syncope and collapse; I25.10 Atherosclerotic heart disease of native coronary artery without angina pectoris; E11.9 Type 2 diabetes mellitus without complications; E78.5 Hyperlipidemia, unspecified; Z79.82 Long term (current) use of aspirin; Z87.891 Personal history of nicotine dependence
CPT/HCPCS: 36415; 36416; 71275; 78452; 80048; 80053; 81003; 82607; 82962; 83036; 83735; 83880; 84145; 84443; 84484; 85025; 86140; 93005; 93017; 93306; 93454; 96360; 96361; 96372; 99152; 99153; 99285; A9500; C1769; C1887; C1894; G0378; J0360; J1644; J1650; J2250; J2785; J3010; J3490; J7030; Q0163; Q9967

== ENCOUNTER → 2022-08-08 15:12 | Outpatient (BNVA) | payer BC, SELFPAY | PROVIDERS: PCP Nurse Practitioner Family; Visit Provider Nurse Practitioner Family | DX: I25.10 Atherosclerotic heart disease of native coronary artery without angina pectoris (principal); R55 Syncope and collapse | CPT/HCPCS: 80048 ==

== ENCOUNTER 2022-09-17 14:51 | Emergency (ER) | payer BC, MEDICARE, SELFPAY ==
[2022-09-17 15:17] VITALS: BP 125/67; PULSE 60; RESP 16; TEMP 36.9; O2SAT 100
[2022-09-17 15:19] LABS: Glucose Point of Care 67 mg/dL (70-110)
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
[2022-09-17 16:16] LABS: Glucose Point of Care 152 mg/dL (70-110)
--- NOTE | 2022-09-17 16:16 | ECG_ITS ---
[facility] Test Date: 2022-09-17 Pat Name: Jordan Dorsey Department: Room: Gender: Male [place]: : 1950 Requested By: Efrain Cortes Order Number: [id number] Arora MD: Veda Alexis M.D. Measurements Intervals [place] Rate: 60 P: 52 [place]: 191 QRS: 9 QRSD: 162 T: 15 QT: 439 QTc: 440 Interpretive Statements SINUS RHYTHM LEFT BUNDLE BRANCH BLOCK [120+ ms QRS DURATION, 80+ ms Q/S IN V1/V2, 85+ ms R IN I/aVL/V5/V6] Compared to ECG 07/29/2022 20:11:21 No significant changes Electronically Signed On 09-17-2022 17:52:37 FILLER BLENDER by Veda Alexis M.D. [id number]
[2022-09-17 16:46] VITALS: BP 119/67; PULSE 60; RESP 16; O2SAT 99
== END 2022-09-17 16:47 | disposition home or self-care (01) ==
PROVIDERS: Emergency Provider Physician Assistant; PCP Nurse Practitioner Family
DX: E11.649 Type 2 diabetes mellitus with hypoglycemia without coma (principal); I10 Essential (primary) hypertension
CPT/HCPCS: 36416; 82962; 93005; 99283